=== PATIENT | female | born 1965 | race Two or more races ===

== ENCOUNTER 2016-05-21 12:26 | Observation (INO) | payer MEDICAID ==
[~2016-05-21] VITALS: Ht 157.5 cm; Wt 68.9 kg
[~2016-05-21 12:26] MED LIST: GLIP-115 PO; LISI30TA36 PO; METF-312 PO; SIMV-8 PO
[2016-05-21 14:17] LABS: Albumin 3.8 g/dL (3.4-5.0); BUN/Creatinine Ratio 9.8; Bilirubin, Total 0.4 mg/dL (0.2-1.0); Calcium 8.7 mg/dL (8.5-10.1); Potassium 3.7 mmol/L (3.5-5.1); Total Protein 7.3 g/dL (6.4-8.2)
[2016-05-21 19:44] LABS: Basophils # (auto) 0 uL; Basophils % (auto) 0.4 % (0.0-2.0); Eosinophils # (auto) 0 uL; Eosinophils % (auto) 0.5 % (0.0-7.0); Hematocrit 38.1 % (36.0-46.0); Hemoglobin 12.6 g/dL (12.2-16.2); Lymphocytes % (auto) 29.5 % (10.0-50.0); Mean Corpuscular Hemoglobin 31.6 pg (28.0-32.0); Mean Corpuscular Hgb Conc. 33.1 g/dL (32.0-36.0); Mean Corpuscular Volume 95.3 fL (80.0-100.0); Mean Platelet Volume 8.1 fL (7.4-10.4); Monocytes # (auto) 0.6 uL; Monocytes % (auto) 6.2 % (0.0-12.0); Neutrophils # (auto) 6.3 uL; Neutrophils % (auto) 63.4 % (37.0-80.0); Platelet Count (auto) 399 10^3/uL (140-450); Red Cell Distribution Width 13.6 % (11.6-16.0)
[2016-05-21 21:39] LABS: Urine Bilirubin Negative (Negative); Urine Blood Negative /uL (Negative); Urine Color Yellow (Yellow); Urine Nitrite Negative (Negative); Urine RBC 1 /hpf (0 - 4); Urine Squamous Epithelial Cell FEW /hpf (<5); Urine Urobilinogen Normal (Negative); Urine pH 5.5 (5.0-8.0)
[2016-05-21 21:41] LABS: Urine Glucose 4+ mg/dL (Normal); Urine Ketone 3+ (Negative)
[2016-05-21] MEDS ORDERED: MORPHINE SULFATE 4 MG/ML SYRG IV ONE (21:45)
[2016-05-21] MEDS ORDERED: ONDANSETRON HCL 4 MG/2 ML VIAL IV ONE (21:45)
[2016-05-21] MEDS ORDERED: IBUPROFEN 800 MG TAB PO ONE (22:00)
[2016-05-21 23:14] VITALS: BP 148/68
== END 2016-05-21 23:30 | disposition home or self-care (01) | DRG 861 ==
LOC: ER 12:26 → OVERFLOW 19:05 → ER 23:30
PROVIDERS: ADMIT Emergency Medicine; ATTEND Emergency Medicine
DX: G89.18 Other acute postprocedural pain (principal); I10 Essential (primary) hypertension; S46.912A Strain of unspecified muscle, fascia and tendon at shoulder and upper arm level, left arm, initial encounter; R50.9 Fever, unspecified; E11.9 Type 2 diabetes mellitus without complications; M25.512 Pain in left shoulder; Z89.022 Acquired absence of left finger(s)
CPT/HCPCS: 36415; 73200; 80053; 81001; 81025; 85025; 99285; G0378; J7030

== ENCOUNTER 2016-09-07 17:13 | Emergency (ER) | payer MEDICAID ==
[~2016-09-07] VITALS: Ht 157.5 cm; Wt 64.9 kg
[~2016-09-07 17:13] MED LIST changes: -METF-312 PO; +METF-370 PO
[2016-09-07 17:34] VITALS: BP 141/62
== END 2016-09-07 17:56 | disposition home or self-care (01) ==
LOC: ER 17:13
DX: M25.572 Pain in left ankle and joints of left foot (principal); M79.652 Pain in left thigh; M79.1 Myalgia; E11.65 Type 2 diabetes mellitus with hyperglycemia; E78.5 Hyperlipidemia, unspecified; I10 Essential (primary) hypertension; Z98.51 Tubal ligation status; Z90.710 Acquired absence of both cervix and uterus; Z88.6 Allergy status to analgesic agent

== ENCOUNTER 2016-10-17 12:04 | Emergency (ER) | payer MEDICAID ==
[~2016-10-17] VITALS: Ht 157.5 cm; Wt 67.1 kg
[2016-10-17 12:15] VITALS: BP 147/69
== END 2016-10-17 12:54 | disposition home or self-care (01) ==
LOC: ER 12:04
DX: R50.9 Fever, unspecified (principal); R42 Dizziness and giddiness; I10 Essential (primary) hypertension; E11.9 Type 2 diabetes mellitus without complications; E78.5 Hyperlipidemia, unspecified; Z98.890 Other specified postprocedural states; Z88.6 Allergy status to analgesic agent